=== PATIENT | female | born 1990 | race African-American/Black ===

== ENCOUNTER 2018-03-17 19:01 | Emergency (ER) | payer SELFPAY ==
[~2018-03-17] VITALS: Ht 152.4 cm; Wt 61.0 kg
[~2018-03-17 19:01] MED LIST: METR-1 PO
[2018-03-17 19:22] VITALS: BP 141/85; PULSE 84; RESP 16; TEMP 99.4; O2SAT 98
[2018-03-17] MEDS ORDERED: SODIUM CHLOR 0.9% 1000 ML INJ 1,000 ML IV SCH (20:14)
--- NOTE | 2018-03-17 20:14 | PD ---
HPI Chief Complaint: Abdominal Pain Time Seen by Provider: 20:10 Travel History International Travel<30 days: No Contact w/Intl Traveler<30days: No Traveled to known affect area: No History of Present Illness HPI Patient comes in complaining of 4-5 day duration lower abdominal pain. Describes the pain as crampy sharp, nonradiating, 7 out of 10, right lower quadrant to right lower adnexal area was pointed out by patient.... The symptoms were also associated with patient having nausea and vomiting episodes as well. No alleviating or aggravating factors. No associated factors such as fever, rash, flank pain, chest pain, headache. No known drug allergy Patient denies any significant past medical history. Past surgical history significant for only Patient denies any medications PFSH Past Medical History Medical History: Denies Significant Hx Diminished Hearing: No Tetanus Vaccination: Unknown Influenza Vaccination: No ?: Unknown LMP: 01/26/2018 : 1 Para: 1 Past Surgical History Section: Yes Social History Alcohol Use: Yes (SOMETIMES) Tobacco Use: No Substance Use: Yes ([facility]) Allergies-Medications (Allergen,Severity, Reaction): Coded Allergies: No Known Allergies (Verified Adverse Reaction, Unknown, 03/17/18) Reported Meds & Prescriptions Reported Meds & Active Scripts Active Reglan (Metoclopramide HCl) 5 Mg Tab 5 Mg PO QID 3 Days Macrobid (Nitrofurantoin Monohydrate Macrocrystals) 100 Mg Capsule 100 Mg PO BID 5 Days Flagyl (Metronidazole) 500 Mg Tab 4 Tab PO TODAY TAKE 4 TABS (2000 MG) PO TODAY Review of Systems General / Constitutional: No: Fever Eyes: No: Visual changes HENT: No: Headaches Cardiovascular: No: Chest Pain or Discomfort Respiratory: No: Shortness of Breath Gastrointestinal: Positive: Nausea, Vomiting, Abdominal Pain Genitourinary: No: Dysuria Musculoskeletal: No: Pain Skin: No Rash Neurologic: No: Weakness Psychiatric: No: Depression Endocrine: No: Polydipsia Hematologic/Lymphatic: No: Easy Bruising Physical Exam Narrative GENERAL: SKIN: Warm and dry. HEAD: Atraumatic. Normocephalic. EYES: Pupils equal and round. No scleral icterus. No injection or drainage. ENT: No nasal bleeding or discharge. Mucous membranes pink and moist. NECK: Trachea midline. No JVD. CARDIOVASCULAR: Regular rate and rhythm. RESPIRATORY: No accessory muscle use. Clear to auscultation. Breath sounds equal bilaterally. GASTROINTESTINAL: Abdomen soft, mild tenderness to percussion over right lower quadrant and suprapubic region , nondistended. MUSCULOSKELETAL: Extremities without clubbing, cyanosis, or edema. No obvious deformities. NEUROLOGICAL: Awake and alert. No obvious cranial nerve deficits. Motor grossly within normal limits. Five out of 5 muscle strength in the arms and legs. Normal speech. PSYCHIATRIC: Appropriate mood and affect; insight and judgment normal. Data Data Last Documented VS Vital Signs Date Time Temp Pulse Resp B/P (MAP) Pulse Ox O2 Delivery O2 Flow Rate FiO2 03/17/18 19:22 99.4 84 16 141/85 (103) 98 Orders Orders Complete Blood Count With Diff (03/17/18 20:14) Comprehensive Metabolic Panel (03/17/18 20:14) Lipase (03/17/18 20:14) Urinalysis - C+S If Indicated (03/17/18 20:14) Iv Access Insert/Monitor (03/17/18 20:14) Ecg Monitoring (03/17/18 20:14) Oximetry (03/17/18 20:14) NPO (03/17/18 20:14) Morphine Inj (Morphine Inj) (03/17/18 20:15) Sodium Chlor 0.9% 1000 Ml Inj (Ns 1000 M (03/17/18 20:14) Ed Urine Pregnancytest Poc (03/17/18 20:14) Metoclopramide Inj (Reglan Inj) (03/17/18 20:15) Us Pelvis (Ques Preg/Ectopic) (03/17/18 20:48) Beta Hcg (Quant/Titer) (03/17/18 20:56) Labs Laboratory Tests Test 03/17/18 20:56 White Blood Count 7.6 TH/MM3 Red Blood Count 4.94 MIL/MM3 Hemoglobin 14.1 GM/DL Hematocrit 42.2 % Mean Corpuscular Volume 85.5 FL Mean Corpuscular Hemoglobin 28.6 PG Mean Corpuscular Hemoglobin Concent 33.4 % Red Cell Distribution Width 13.6 % Platelet Count 284 TH/MM3 Mean Platelet Volume 8.1 FL Neutrophils (%) (Auto) 64.3 % Lymphocytes (%) (Auto) 23.8 % Monocytes (%) (Auto) 11.5 % Eosinophils (%) (Auto) 0.1 % Basophils (%) (Auto) 0.3 % Neutrophils # (Auto) 4.9 TH/MM3 Lymphocytes # (Auto) 1.8 TH/MM3 Monocytes # (Auto) 0.9 TH/MM3 Eosinophils # (Auto) 0.0 TH/MM3 Basophils # (Auto) 0.0 TH/MM3 CBC Comment DIFF FINAL Differential Comment Urine Color YELLOW Urine Turbidity HAZY Urine pH 6.0 Urine Specific [place] 1.019 Urine Protein TRACE mg/dL Urine Glucose (UA) NEG mg/dL Urine Ketones 150 mg/dL Urine Occult Blood SMALL Urine Nitrite NEG Urine Bilirubin NEG Urine Urobilinogen 2.0 MG/DL Urine Leukocyte Esterase LARGE Urine RBC 11 /hpf Urine WBC 6 /hpf Urine Squamous Epithelial Cells 15 /hpf Urine Mucus MANY /lpf Microscopic Urinalysis Comment CULT NOT INDICATED Blood Urea Nitrogen 5 MG/DL Creatinine 0.58 MG/DL Random Glucose 68 MG/DL Total Protein 8.4 GM/DL Albumin 3.7 GM/DL Calcium Level 9.4 MG/DL Alkaline Phosphatase 63 U/L Aspartate Amino Transf (AST/SGOT) 12 U/L Alanine Aminotransferase (ALT/SGPT) 14 U/L Total Bilirubin 0.5 MG/DL Sodium Level 136 MEQ/L Potassium Level 3.2 MEQ/L Chloride Level 103 MEQ/L Carbon Dioxide Level 19.1 MEQ/L Anion Gap 14 MEQ/L Estimat Glomerular Filtration Rate 153 ML/MIN Lipase 114 U/L Human Chorionic Gonadotropin, Quant 84820 MIU/ML MDM Medical Decision Making Medical Screen Exam Complete: Yes Emergency Medical Condition: Yes Medical Record Reviewed: Yes Differential Diagnosis Colitis versus appendicitis versus diverticulitis versus UTI versus pancreatitis versus related ectopic Narrative Course CBC shows no leukocytosis, no anemia, no left shift, and normal platelet count UA is consistent with sterile pyuria Chemistries pending as of 2125 Ultrasound is pending as of 2125 At 2336 patient's ultrasound was read by radiologist as IUP approximately 6 weeks, no adnexal masses noted. Diagnosis Primary Impression: Early Additional Impression: Sterile pyuria Patient Instructions: First Trimester (ED), General Instructions, Urinary Tract Infection in Women (DC) Additional Instructions: It is recommended that you establish care with an [employer] REFINISHER for further care of your , your approximately 6 weeks Scripts Metoclopramide (Reglan) 5 Mg Tab 5 MG PO QID for 3 Days, #12 TAB 0 Refills Prov: Joe Resendiz MD 03/17/18 Nitrofurantoin Monohydrate Macrocrystals (Macrobid) 100 Mg Capsule 100 MG PO BID for Infection for 5 Days, #10 CAP 0 Refills Prov: Joe Resendiz MD 03/17/18 Disposition: 01 DISCHARGE HOME Condition: Stable Joe Resendiz MD March 17, 2018 20:14
[2018-03-17] MEDS ORDERED: METOCLOPRAMIDE HCL 10 MG/2 ML VIAL IV PUSH ONE (20:15)
[2018-03-17] MEDS ORDERED: MORPHINE SULFATE 4 MG/ML INJ IV PUSH ONE (20:15)
[2018-03-17 21:16] LABS: AUTOMATED NEUTROPHIL # 4.9 TH/MM3 (1.8-7.7); BASOPHIL % 0.3 % (0.0-2.0); EOSINOPHIL % 0.1 % (0.0-4.0); HEMATOCRIT 42.2 % (35.0-46.0); HEMOGLOBIN 14.1 GM/DL (11.6-15.3); LYMPH % 23.8 % (9.0-44.0); LYMPHOCYTE # 1.8 TH/MM3 (1.0-4.8); MEAN CELL VOLUME 85.5 FL (80.0-100.0); MEAN CORPUSCULAR HEMOGLOBIN 28.6 PG (27.0-34.0); MEAN CORPUSCULAR HGB CONC 33.4 % (32.0-36.0); MEAN PLATELET VOLUME 8.1 FL (7.0-11.0); MONO % 11.5 % (0.0-8.0); MONOCYTE # 0.9 TH/MM3 (0-0.9); NEUT % 64.3 % (16.0-70.0); PLATELET COUNT 284 TH/MM3 (150-450); RED BLOOD COUNT 4.94 MIL/MM3 (4.00-5.30); RED CELL DISTRIBUTION WIDTH 13.6 % (11.6-17.2); WHITE BLOOD COUNT 7.6 TH/MM3 (4.0-11.0)
[2018-03-17 21:21] LABS: BILIRUBIN, URINE NEG (NEG); BLOOD, URINE SMALL (NEG); GLUCOSE,URINE NEG (NEG); KETONE, URINE 150 mg/dL (NEG); MUCUS URINE MANY /lpf (OCC); NITRITE,URINE NEG (NEG); SQUAMOUS EPITHELIAL CELL URINE 15 /hpf (0-5); URINE COLOR YELLOW (YELLW/STRAW); URINE LEUKOCYTE ESTERASE LARGE (NEG)
[2018-03-17 21:37] LABS: ALBUMIN 3.7 GM/DL (3.4-5.0); AST (GOT) 12 U/L (15-37); BICARBONATE 19.1 MEQ/L (21.0-32.0); BLOOD UREA NITROGEN 5 MG/DL (7-18); CALCIUM 9.4 MG/DL (8.5-10.1); CHLORIDE 103 MEQ/L (98-107); CREATININE 0.58 MG/DL (0.50-1.00); GLOMERULAR FILTRATION RATE 153 ML/MIN (>89); GLUCOSE,RANDOM 68 MG/DL (74-106); SODIUM (NA) 136 MEQ/L (136-145)
[2018-03-17 21:55] LABS: ALKALINE PHOSPHATASE 63 U/L (45-117); ALT (GPT) 14 U/L (10-53); TOTAL BILIRUBIN ADULT 0.5 MG/DL (0.2-1.0); TOTAL PROTEIN 8.4 GM/DL (6.4-8.2)
[2018-03-17] MEDS ORDERED: MACR100C2 PO (23:13)
[2018-03-17] MEDS ORDERED: REGL5TAB PO (23:14)
--- NOTE | 2018-03-18 00:02 | RADRPT ---
EXAM DATE: 03/17/2018 11:42 PM EDT AGE/SEX: 27 years / Female INDICATIONS: Pelvic pain. CLINICAL DATA: This is the patient's initial encounter. Patient reports that signs and symptoms have been present for 4 - 6 days and indicates a pain score of 2/10. MEDICAL/SURGICAL HISTORY: . section. COMPARISON: No prior [facility] exams available for comparison. MEASUREMENTS: Uterus:__11.0 x 5.9 x 4.5 cm Endometrial Stripe:__12 mm Right Ovary:__ 2.9 x 2.3 x 1.3 cm Left Ovary:__ 4.1 x 3.6 x 1.9 cm FINDINGS: The patient refused transvaginal scanning. Uterus: There is a single early intrauterine present with a small yolk sac and pole corresponding to a 6 week 1 day menstrual age. A heart rate of 131 bpm was obtained. Right Ovary: Unremarkable in appearance. Left Ovary: Unremarkable in appearance. Other: No free fluid. CONCLUSION: 1. Single early intrauterine corresponding to 6 week 1 day menstrual age. Electronically signed by: Tramaine Benavidez MD 03/18/2018 12:01 AM EDT
== END 2018-03-18 00:33 | disposition home or self-care (01) ==
LOC: NEPD 19:01
DX: O26.891 Other specified pregnancy related conditions, first trimester (principal); O23.41 Unspecified infection of urinary tract in pregnancy, first trimester; Z3A.01 Less than 8 weeks gestation of pregnancy
CPT/HCPCS: 76700; 80053; 81001; 83690; 84702; 84703; 85025; 96374; 99284; J2765; J7030

== ENCOUNTER 2018-10-30 05:24 | Inpatient (IN) ==
--- NOTE | 2018-10-21 12:41 | MH ---
cc: Anthony Guevara MD DATE OF ADMISSION: 10/30/2018 CHIEF COMPLAINT: Admission for repeat . HISTORY OF PRESENT ILLNESS: This patient is a 28-year-old G2, P1-0-0-1, who will be at 39 weeks and 5 days by her LMP consistent with a 15-week ultrasound with estimated due date of 11/01/2018, admitted for a scheduled repeat . Her has been complicated by Marijuana use, recurrent Trichomonas infection, rubella equivocal and anemia. PAST MEDICAL HISTORY: Anemia. MEDICATIONS: 1. Flagyl 1 gram daily. 2. vitamins. 3. Iron. ALLERGIES: NO KNOWN DRUG ALLERGIES. 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 No history of STDs other than Trichomonas this . OBSTETRICAL HISTORY: 05/2011 40 weeks, primary low transverse of a male weighing 6 pounds 6 ounces for arrest at 5 cm. SURGICAL HISTORY: in 2010. SOCIAL HISTORY: Denies tobacco, alcohol or drug use. FAMILY HISTORY: No pertinent positive family history. PHYSICAL EXAMINATION: Based on the encounter from 10/21/2018. GENERAL: Alert and oriented x3, resting comfortably in bed. PULMONARY: Lungs are clear to auscultation bilaterally. CARDIOVASCULAR: Regular rate and rhythm. ABDOMEN: Soft, gravid, nontender. GENITOURINARY: Deferred. EXTREMITIES: No clubbing, cyanosis or edema. LABS: Please see scanned in records. ASSESSMENT AND PLAN: This patient is a 28-year-old G2, P1-0-0-1, who will be at 39 weeks and 5 days for a scheduled repeat . 1. Intrauterine . Will be placed on monitoring upon presentation. She has a female fetus, anterior placenta. She is GBS positive, which is irrelevant given planned . 2. History of , desiring repeat. I discussed the risks and benefits of surgery. 3. History of marijuana use. The patient has stopped. Aware of need to involve social work if positive upon hospitalization. 4. Trichomonas. The patient tested positive in her first trimester. She is status post treatment and denies any sexual partner since that time. She was retested on 10/13/2018 and was found to be positive again. On 10/21/2018, she was restarted on Flagyl at 2 grams daily for 7 days. 5. Anemia. The patient has been compliant with her iron. MD DESIREE De Paz/susana , 12:08 PM , 12:15 PM
[2018-10-30 06:07] LABS: Baso % (Auto) 0.4 % (0.0-2.0); Eos # (Auto) 0.1 th/mm3 (0.0-0.4); Eos % (Auto) 0.8 % (0.0-4.0); Hematocrit 33.9 % (35.0-46.0); Hemoglobin 11.4 gm/dL (11.6-15.3); Lymph # (Auto) 2.5 th/mm3 (1.0-4.8); Lymph % (Auto) 29.5 % (9.0-44.0); Mean Corpuscular HGB Conc 33.6 % (32.0-36.0); Mean Corpuscular Hemoglobin 27.3 pg (27.0-34.0); Mean Corpuscular Volume 81.2 fL (80.0-100.0); Mean Platelet Volume 7.3 fL (7.0-11.0); Mono # (Auto) 0.9 th/mm3 (0.0-0.9); Mono % (Auto) 10.9 % (0.0-8.0); Neut # (Auto) 4.9 th/mm3 (1.8-7.7); Neut % (Auto) 58.4 % (16.0-70.0); Platelet Count 300 th/mm3 (150-450); Red Blood Count 4.18 mil/mm3 (4.00-5.30); Red Cell Distribution Width 15.2 % (11.6-17.2); White Blood Count 8.4 th/mm3 (4.0-11.0)
[2018-10-30] MEDS ORDERED: Citric Acid/Sodium Citrate Liq 30 ML UDC PO SCH (06:15)
[2018-10-30] MEDS ORDERED: ceFAZolin 2 GM IV; once IV.SIG ONE (06:30)
[2018-10-30] MEDS ORDERED: Morphine Sulfate PF Inj 5 MG/10 ML Ampul ONE (07:06)
[2018-10-30] MEDS ORDERED: Methylergonovine Inj 0.2 MG/ML Ampul ONE (08:22)
[2018-10-30] MEDS ORDERED: Acetaminophen 325 MG Tablet PO PRN (09:25)
[2018-10-30] MEDS ORDERED: Oxytocin 30 Units/500ml Premix 30 UNITS/500 ML BAG IV.SIG ONE (09:25)
[2018-10-30] MEDS ORDERED: ceFAZolin Inj 1 GM Vial (Addvantage) IV.SIG ONE (09:29)
[2018-10-30 09:48] LABS: Bacteria,Urine Rare /hpf; Bilirubin,Urine Negative (Negative); Clarity,Urine Hazy (Clear); Color,Urine Yellow (Yellw/Straw); Glucose,Urine (UA) Negative (Negative); Leukocyte Esterase,Urine Large (Negative); Mucus,Urine Few /lpf (Occasional); Nitrite,Urine Negative (Negative); Specific Gravity,Urine 1.016 (1.002-1.035); Squamous Epithelial Cell,Urine 6 /hpf (0-5)
--- NOTE | 2018-10-30 09:48 | P.OP ---
Surgeon: Anthony Guevara MD Operation and Findings: Preoperative diagnosis: 1. Intrauterine at 39 weeks and 5 days 2. History of desiring repeat Postop diagnosis 1. Same as above 2. hemorrhage 3. Significant uterine adhesions to anterior abdominal wall Procedure 1. Repeat low transverse section, Pfannenstiel scar excision, lysis of adhesions taking greater than [address] Anthony Guevara Java Consultant: [place] labor and delivery scrub staff Findings: 1. Viable female infant at 8:04 AM, Apgars 7 and 9, weight 2640 g 2. Intact placenta 3 vessel cord at 8:05 AM 3. Normal bilateral ovaries and fallopian tubes 4. Normal size uterus, somewhat atonic after delivery, dense adhesions of the uterus to the anterior abdominal wall including the omentum located at the mid body of the uterus. Bladder free of adhesions and away from the hysterotomy. There is a incidental 1.5cm hysterotomy at the left mid anterior body made with my index finger upon attempting blunt entry to the peritoneum. Anesthesia: Spinal with Astramorph Specimen: Placenta to disposal Estimated blood loss: 1500 cc, mostly due to duration of the case and generalized using Fluid replacement: 2600 cc lactated Ringer's and Pitocin Medications: 0.2 mg IM Methergine x1 Urine output: 100 cc clear urine Via [facility] DVT prophylaxis: Sequential compression devices throughout the case Antibiotics: 2 g Ancef preoperatively and re-dosed at the end of the case after estimating the blood loss Counts: correct x2 Time out done: yes Disposition: Stable to PACU then , CBC, coags, fibrinogen to be collected at noon. Indications: This patient is a 28-year-old 001 who is followed in the outpatient setting during her entire , she had a history of a desired repeat she was scheduled today, we discussed the risks, benefits and expected outcomes of a repeat . Description of procedure: The patient was taken to the operating room and after spinal anesthesia was performed she was positioned and supine position with arms out in a left lateral tilt, the abdomen was prepped and draped in sterile fashion, a ellipse incision including the prior Pfannenstiel scar was made in the dense hypertrophic scar was removed with the Bovie. The incision was carried down sharply to the fascia which was nicked on either side of the midline, this was extended bilaterally, the fascia was elevated superiorly and inferiorly and the rectus muscles were sharply dissected off the overlying fascia. The rectus was elevated using Allis clamps and with a scalpel the midline of the rectus and believed to be the peritoneum were sharply opened vertically at the midline. I bluntly inserted my finger cephalad to enter the peritoneum and appreciated dense scarring and return of blood which I then realized I had entered the uterus incidentally. The dense scar and rectus were dissected caudally to provide more access and the peritoneum was entered sharply below the previous attempt. Then is when I appreciated there to be even more significant amounts of dense adhesions adhering the uterus to the anterior abdominal wall however the lower uterine segment was accessible. A bladder flap was not needed as the bladder was well away from the desired hysterotomy site. The hysterotomy was made in the lower uterine segment with a scalpel in a curvilinear fashion, it was extended cephalad-caudad manner, I inserted my hand into the hysterotomy and the head was elevated to the hysterotomy and with fundal pressure was delivered. With gentle downward and upward guidance the anterior and posterior shoulder was delivered, followed by the torso and lower extremities with ease, the had spontaneous cry the cord was clamped and cut, the was handed off to nursing staff after delayed cord clamping was allowed. Pitocin was bolused and with uterine massage and cord traction the placenta was delivered, uterus was cleared of clot and debris, the uterus was not able to be exteriorized initially. The edges were identified with ring forceps and the hysterotomy closed with a single locking layer of 0 Vicryl. There was some atony and the patient was given Methergine by anesthesia. I then inserted my hand into the abdominal cavity and created a window around the dense scarring of the uterus to the anterior abdominal wall, using a combination of sharp, blunt and Bovie meticulous dissection the uterus was freed from the anterior abdominal wall. The omental adhesions were removed after doubly ligating with 0 Vicryl to provide hemostasis. The uterus was then exteriorized and the digital puncture of the uterus was closed with 0 locking Vicryl. There were several areas of oozing at the original hysterotomy closure and 2-3 figure of 8 sutures using 0 Vicryl were used to provide hemostasis. There was also generalized oozing across the area where the uterus was dissected off the abdominal wall. Joelle powder was applied and the uterus was returned to the abdomen. The pericolic gutters were irrigated. The hysterotomy was reinspected and found to be hemostatic. The rectus and fascia were inspected and hemostasis appreciated. The fascia was closed from left to right with 0 running delayed absorbable suture. The subcutaneous tissue was irrigated, inspected, hemostasis was appreciated, the space was closed with running 2-0 delayed absorbable monofilament suture. The skin was closed with removable zoraida and then a pressure dressing was applied and the patient tolerated procedure well was transferred to PACU.
[2018-10-30] MEDS ORDERED: ceFAZolin 2 GM Premix Inj 2 GM/50 ML PIGGYBACK IV.SIG ONE ×2 (09:52→10:00)
[2018-10-30] MEDS ORDERED: Oxytocin 30 Units/500ml Premix 30 UNITS/500 ML BAG ONE (09:55)
[2018-10-30 12:35] LABS: Hematocrit 33.1 % (35.0-46.0); Hemoglobin 10.5 gm/dL (11.6-15.3); Mean Corpuscular HGB Conc 31.8 % (32.0-36.0); Mean Corpuscular Hemoglobin 26.6 pg (27.0-34.0); Mean Corpuscular Volume 83.6 fL (80.0-100.0); Mean Platelet Volume 7.5 fL (7.0-11.0); Platelet Count 286 th/mm3 (150-450); Red Blood Count 3.96 mil/mm3 (4.00-5.30); Red Cell Distribution Width 15.7 % (11.6-17.2); White Blood Count 14.2 th/mm3 (4.0-11.0)
[2018-10-30 12:48] LABS: Activated Partial Thrombo Time 32.2 sec (23.4-31.7); Prothrombin Time 10.4 sec (9.8-11.6)
[2018-10-30 12:54] LABS: Anion Gap 8 meq/L (5-15); Blood Urea Nitrogen 5 mg/dL (7-18); Calcium 8.2 mg/dL (8.5-10.1); Carbon Dioxide 24.1 meq/L (21.0-32.0); Chloride 106 meq/L (98-107); Glomerular Filtration Rate Greater Than 89 mL/min (>89); Glucose,Random 103 mg/dL (74-106); Potassium 3.7 meq/L (3.5-5.1); Sodium 138 meq/L (136-145)
[2018-10-30] MEDS ORDERED: Oxytocin 30 Units/500ml Premix 30 UNITS/500 ML BAG IV.SIG PRN (14:25)
[2018-10-31 00:10] LABS: Hematocrit 20.9 % (35.0-46.0); Hemoglobin 6.6 gm/dL (11.6-15.3)
[2018-10-31] MEDS ORDERED: Acetaminophen 325 MG Tablet PO PRN (00:23)
--- NOTE | 2018-10-31 00:27 | P.OBGPN ---
called this evening that Ms Carson was unable to walk without severe dizziness and syncope. Stat Hgb 6.6 Two units of packed red blood cells ordered tonight.
[2018-10-31 06:28] VITALS: O2SAT 100
[2018-10-31 11:26] LABS: Baso % (Auto) 0.2 % (0.0-2.0); Eos % (Auto) 0.1 % (0.0-4.0); Hematocrit 26.4 % (35.0-46.0); Hemoglobin 9.1 gm/dL (11.6-15.3); Lymph # (Auto) 1.4 th/mm3 (1.0-4.8); Lymph % (Auto) 10.5 % (9.0-44.0); Mean Corpuscular HGB Conc 34.5 % (32.0-36.0); Mean Corpuscular Hemoglobin 29.8 pg (27.0-34.0); Mean Corpuscular Volume 86.4 fL (80.0-100.0); Mean Platelet Volume 7.1 fL (7.0-11.0); Mono # (Auto) 1.6 th/mm3 (0.0-0.9); Mono % (Auto) 12.1 % (0.0-8.0); Neut # (Auto) 10.3 th/mm3 (1.8-7.7); Neut % (Auto) 77.1 % (16.0-70.0); Platelet Count 228 th/mm3 (150-450); Red Blood Count 3.05 mil/mm3 (4.00-5.30); Red Cell Distribution Width 17.5 % (11.6-17.2); White Blood Count 13.4 th/mm3 (4.0-11.0)
--- NOTE | 2018-10-31 12:24 | P.PNOB ---
Subjective Post op day: 1 Interval history: feeling much better after transfusion of two units pRBCs for Hgb of 6.3 s/p very difficult repeat section with severe adhesions and EBL ~ 1500 can ambulate now. Pain controlled. no NV wanting to nurse Objective Vital Signs/I&O: Vital Signs 10/30/18 12:38 10/30/18 14:00 10/30/18 15:30 Temperature 97.5 F L 98.6 F Pulse Rate Respiratory Rate Blood Pressure 86/68 L Pulse Oximetry 10/30/18 16:30 10/30/18 20:00 10/30/18 23:23 Temperature 98.2 F 98.2 F 98.5 F Pulse Rate 117 H 86 93 H Respiratory Rate 18 18 18 Blood Pressure 105/65 108/66 97/60 L Pulse Oximetry 10/31/18 03:22 10/31/18 03:53 10/31/18 04:20 Temperature 98.4 F 98.5 F 98.4 F Pulse Rate 114 H 100 H 100 H Respiratory Rate 20 20 18 Blood Pressure 113/67 114/67 101/57 L Pulse Oximetry 100 10/31/18 04:55 10/31/18 05:20 10/31/18 06:27 Temperature 98.1 F 98.4 F 98.6 F Pulse Rate 105 H 102 H 95 H Respiratory Rate 18 18 20 Blood Pressure 105/57 L 114/76 119/66 Pulse Oximetry 97 98 100 10/31/18 06:31 10/31/18 08:00 Temperature 98.6 F 98.1 F Pulse Rate 95 H 103 H Respiratory Rate 20 18 Blood Pressure 119/66 105/61 Pulse Oximetry 100 Intake & Output 10/30/18 10/31/18 10/31/18 18:59 06:59 18:59 Intake Total 1500 / 1500 400 / 400 Balance 1500 / 1500 400 / 400 Intake: IV 1500 / 1500 LR 1000 mL Inj 1,000 ML @ 150 1000 / 1000 mls/hr IV.CONT .Q6H40M RASHMI Rx#: [id number] Pitocin 30 Units/NS 500 ml 500 / 500 Premix 30 units In 500 ml @ 100 mls/hr IV.SIG ONCE ONE Rx#: [id number] Intake (Blood Product) Amt 400 / 400 Rbc As-3 Leukoreduced Unit 400 / 400 [id number] Rbc As-3 Leukoreduced Unit 0 / 0 [id number] Result Diagrams: 10/31/18 11:17 10/30/18 12:07 Objective Remarks: GENERAL: Well-nourished, well-developed patient. CARDIOVASCULAR: Regular rate and rhythm without murmurs, gallops, or rubs. RESPIRATORY: Breath sounds equal bilaterally. No accessory muscle use. ABDOMEN/GI: Abdomen soft, non-tender, bowel sounds present. Incision: Clean, dry and intact. Fundus: Firm, non-tender at umbilicus. GENITOURINARY: Light to moderate bleeding. EXTREMITIES: No cyanosis or edema, non-tender, without signs of DVT. Medications and IVs: Active Medications Acetaminophen (Tylenol) 650 mg PO Q6H PRN PRN Reason: PAIN SCALE 1 TO 2 Acetaminophen (Tylenol) 650 mg PO Q4H PRN PRN Reason: FEVER > 100.4 F Citric Acid/Sodium Citrate (Sodium Citrate/Citric Acid Liq) 30 ml PO POLYGRAPH EXAMINER [facility] Stop: 11/03/18 06:14 Last Admin: 10/30/18 07:15 Dose: 30 ml Diphenhydramine HCl (Benadryl) 50 mg PO Q6H PRN PRN Reason: ITCHING/HIVES/ANAPHYLAXIS Diphtheria/Pertussis/Tetanus Vacc (Boostrix Vaccine Inj) 0.5 ml IM .ONCE ONE Stop: 10/31/18 16:01 Lactated Ringer's (Lr 1000 Ml Inj) 1,000 mls @ 150 mls/hr IV.CONT .Q6H40M [facility] Last Admin: 10/30/18 15:32 Dose: 150 mls/hr Oxytocin (Pitocin 30 Units/Ns 500 Ml Premix) 30 units in 500 mls @ 100 mls/hr IV.SIG UNSCH PRN PRN Reason: Heavy bleeding Iron Sucrose 200 mg/ Sodium (Chloride) 110 mls @ 110 mls/hr IV.SIG ONCE ONE Stop: 10/31/18 13:19 Ibuprofen (Motrin) 800 mg PO Q8H PRN PRN Reason: cramping Last Admin: 10/31/18 10:10 Dose: 800 mg Measles/Mumps/Rubella Vaccine Live (M-M-R Ii Vaccine Inj) 0.5 ml SQ .ONCE ONE Stop: 10/31/18 16:01 Ondansetron HCl (Zofran Odt) 4 mg PO Q4H PRN PRN Reason: NAUSEA Oxycodone/Acetaminophen (Percocet 5/325 Mg) 1 tab PO Q4H PRN PRN Reason: PAIN SCALE 3 TO 5 Last Admin: 10/30/18 20:52 Dose: 1 tab Oxycodone/Acetaminophen (Percocet 5/325 Mg) 2 tab PO Q4H PRN PRN Reason: PAIN SCALE 6 TO 10 Sodium Chloride (Ns Flush) 2 ml IV.FLUSH BID RASHMI Last Admin: 10/30/18 20:53 Dose: Not Given Sodium Chloride (Ns Flush) 2 ml IV.FLUSH PRN PRN PRN Reason: FLUSH AFTER USING IV ACCESS Assessment and Plan - Diagnosis (1) Status post repeat low transverse section Code(s): Z98.891 - History of uterine scar from previous surgery Status: Acute (2) Anemia complicating Code(s): O99.019 - Anemia complicating , unspecified trimester Status : Acute (3) Intraoperative hemorrhage Code(s): T81.89XA - Other complications of procedures, not elsewhere classified , initial encounter Status: Acute - Plan will give venofir encourage ambulation anticipate discharg POD 3 repeat H & H tomorrow
[2018-10-31] MEDS ORDERED: Iron Sucrose Inj 200 MG in Sodium Chlor 0.9% Inj 100 ML IV.SIG ONE (13:00)
[2018-10-31] MEDS ORDERED: Diphtheria/Tetanus/Pertussis Vaccine Inj 0.5 ML Syringe IM ONE (16:00)
[2018-10-31] MEDS ORDERED: Measles/Mumps/Rubella Vaccine Inj 0.5 ML Vial SQ ONE (16:00)
[2018-11-01 07:59] LABS: Hematocrit 23.3 % (35.0-46.0); Hemoglobin 8.2 gm/dL (11.6-15.3); Mean Corpuscular HGB Conc 35.4 % (32.0-36.0); Mean Corpuscular Hemoglobin 30.4 pg (27.0-34.0); Mean Corpuscular Volume 85.9 fL (80.0-100.0); Mean Platelet Volume 7.3 fL (7.0-11.0); Platelet Count 210 th/mm3 (150-450); Red Blood Count 2.71 mil/mm3 (4.00-5.30); Red Cell Distribution Width 16.9 % (11.6-17.2); White Blood Count 12.1 th/mm3 (4.0-11.0)
[2018-11-01] MEDS: Polyethylene Glycol 3350 17 GM Packet PO SCH (13:49)
[2018-11-01 14:23] VITALS: TEMP 98.1
--- NOTE | 2018-11-02 07:12 | P.PNOB ---
Subjective Post op day: 3 Interval history: s/p repeat complicated by adhesions and EBL 1500mL, s/p transfusion 2units PRBCs and venofer over weekend, feeling much better, asymptomatic, lochia light, desires discharge to home Objective Vital Signs/I&O: Vital Signs 11/01/18 07:30 11/01/18 23:16 11/01/18 23:17 Temperature 98.1 F 98.1 F Pulse Rate 84 94 H Respiratory Rate 16 18 Blood Pressure 112/63 120/74 Intake & Output 11/01/18 11/02/18 11/02/18 18:59 06:59 18:59 Intake Total 100 / 100 Balance 100 / 100 Intake: IV 100 / 100 Result Diagrams: 11/01/18 07:34 10/30/18 12:07 Objective Remarks: GENERAL: Well-nourished, well-developed patient. CARDIOVASCULAR: Regular rate and rhythm without murmurs, gallops, or rubs. RESPIRATORY: Breath sounds equal bilaterally. No accessory muscle use. ABDOMEN/GI: Abdomen soft, non-tender, bowel sounds present. Incision: Clean, dry and intact. zoraida in place. Fundus: Firm, non-tender at umbilicus. GENITOURINARY: Light bleeding. EXTREMITIES: No cyanosis or edema, non-tender, without signs of DVT. 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 [facility] Stop: 11/03/18 06:14 Last Admin: 10/30/18 07:15 Dose: 30 ml Diphenhydramine HCl (Benadryl) 50 mg PO Q6H PRN PRN Reason: ITCHING/HIVES/ANAPHYLAXIS Lactated Ringer's (Lr 1000 Ml Inj) 1,000 mls @ 150 mls/hr IV.CONT .Q6H40M [facility] Last Admin: 10/30/18 15:32 Dose: 150 mls/hr Oxytocin (Pitocin 30 Units/Ns 500 Ml Premix) 30 units in 500 mls @ 100 mls/hr IV.SIG UNSCH PRN PRN Reason: Heavy bleeding Ibuprofen (Motrin) 800 mg PO Q8H PRN PRN Reason: cramping Last Admin: 11/02/18 06:02 Dose: 800 mg Ondansetron HCl (Zofran Odt) 4 mg PO Q4H PRN PRN Reason: NAUSEA Oxycodone/Acetaminophen (Percocet 5/325 Mg) 1 tab PO Q4H PRN PRN Reason: PAIN SCALE 3 TO 5 Last Admin: 11/02/18 06:04 Dose: 1 tab Oxycodone/Acetaminophen (Percocet 5/325 Mg) 2 tab PO Q4H PRN PRN Reason: PAIN SCALE 6 TO 10 Polyethylene Glycol (Miralax) 17 gm PO DAILY [facility] Last Admin: 11/01/18 13:49 Dose: 17 gm Sodium Chloride (Ns Flush) 2 ml IV.FLUSH BID [facility] Last Admin: 11/01/18 09:33 Dose: 2 ml Sodium Chloride (Ns Flush) 2 ml IV.FLUSH PRN PRN PRN Reason: FLUSH AFTER USING IV ACCESS Assessment and Plan - Diagnosis (1) Status post repeat low transverse section Code(s): Z98.891 - History of uterine scar from previous surgery Status: Acute (2) Anemia complicating Code(s): O99.019 - Anemia complicating , unspecified trimester Status : Acute (3) Intraoperative hemorrhage Code(s): T81.89XA - Other complications of procedures, not elsewhere classified , initial encounter Status: Acute - Plan POD#3 doing well, encouraged continue PNV and oral iron supplement at home on discharge; routine postop care & precautions discussed, d/c zoraida prior to discharge to home, d/c home today with office f/u [address] Guevara Discharge Planning: today
[2018-11-02 08:59] VITALS: BP 126/77; PULSE 81; RESP 16
[2018-11-02 09:06] LABS: Hematocrit 24.8 % (35.0-46.0); Hemoglobin 8.4 gm/dL (11.6-15.3); Mean Corpuscular HGB Conc 33.8 % (32.0-36.0); Mean Corpuscular Hemoglobin 29.6 pg (27.0-34.0); Mean Corpuscular Volume 87.5 fL (80.0-100.0); Mean Platelet Volume 7.5 fL (7.0-11.0); Platelet Count 244 th/mm3 (150-450); Red Blood Count 2.83 mil/mm3 (4.00-5.30); Red Cell Distribution Width 17.3 % (11.6-17.2)
[2018-11-02 09:35] LABS: Anion Gap 6 meq/L (5-15); Blood Urea Nitrogen 10 mg/dL (7-18); Carbon Dioxide 25.2 meq/L (21.0-32.0); Chloride 110 meq/L (98-107); Glomerular Filtration Rate Greater Than 89 mL/min (>89); Glucose,Random 57 mg/dL (74-106); Potassium 3.8 meq/L (3.5-5.1); Sodium 141 meq/L (136-145)
[2018-11-02] MEDS: Polyethylene Glycol 3350 17 GM Packet PO SCH (09:45)
== END 2018-11-02 13:00 | disposition home or self-care (01) | DRG 787 ==
LOC: H2E 05:24 → H1EA 10:45
PROVIDERS: ADMIT Obstetrics & Gynecology; ATTEND Obstetrics & Gynecology
CPT/HCPCS: 36430; 59025; 80048; 80307; 81001; 82728; 82948; 82962; 85014; 85018; 85025; 85027; 85384; 85610; 85730; 86850; 86900; 86901; 86923; 87086; G0481; G0483; J0131; J0690; J1756; J2210; J2274; J2590; J7120; P9016